=== PATIENT | male | born 1955 | race Caucasian/White ===

== ENCOUNTER → 2017-01-09 | Outpatient (CLI) | payer SELFPAY | END | disposition home or self-care (01) | LOC: LABPAT 10:26 | PROVIDERS: ATTEND Orthopaedic Surgery | DX: Z01.812 Encounter for preprocedural laboratory examination (principal) | CPT/HCPCS: 87070 ==

== ENCOUNTER 2017-01-26 10:23 | Inpatient (IN) | payer OTHER ==
[2017-01-23 09:57] VITALS: BMI 36.8
[~2017-01-26 10:23] MED LIST: ACETAMINOPHEN TAB 500 MG TAB PO ONE; DEXAMETHASONE SOD PHOSPHATE 10 MG/ML 1 ML VIAL IV ONE; HYDROmorphone 0.5 MG/0.5 ML SYRINGE IVP PRN; LIDOCAINE 1% 20 ML VIAL (10MG/ML) FOR IV START INTRADERMA PRN; MELOXICAM 7.5 MG TAB PO ONE; MIDAZOLAM 2 MG/2 ML VIAL IV PRN; ONDANSETRON 4 MG/2 ML VIAL IVP ONE; SCOPOLAMINE 1.5MG/72HR PATCH TRANSDERM ONE; TRANEXAMIC ACID 1,000 MG in SODIUM CHLORIDE 0.9% 100 ML IVPB ONE; ceFAZolin 2 GM in SODIUM CHLORIDE 0.9% 100 ML IVPB ONE
[2017-01-26] MEDS ORDERED: ROPIVACAINE 246.25 MG, EPINEPHrine 0.5 MG, KETOROLAC 30 MG, cloNIDine HCL/PF 80 MCG, WA... MISCELLANE ONE ×5 (10:46)
[2017-01-26] MEDS ORDERED: HYDROmorphone 1 MG/ML 1 ML SYRINGE IVP PRN ×3 (10:59→16:43)
[2017-01-26] MEDS ORDERED: DIAZEPAM 5 MG TAB PO PRN ×2 (10:59)
[2017-01-26] MEDS ORDERED: HYDROcodone/APAP 5-325MG 1 EACH TAB PO PRN (10:59)
[2017-01-26] MEDS ORDERED: NALOXONE 0.4 MG/ML 1 ML VIAL IV PRN (10:59)
[2017-01-26] MEDS ORDERED: MAGNESIUM HYDROXIDE 2,400 MG/10 ML CUP PO PRN (10:59)
[2017-01-26] MEDS ORDERED: HYDROmorphone 0.5 MG/0.5 ML SYRINGE IVP PRN ×2 (10:59)
[2017-01-26] MEDS ORDERED: ONDANSETRON 4 MG/2 ML VIAL IVP PRN (10:59)
[2017-01-26] MEDS: LACTATED RINGERS 1,000 ML IV SCH (11:59)
[2017-01-26 12:22] LABS: INR 1.1 (<1.2); Prothrombin Time 11.1 sec (9.0-12.0)
[2017-01-26] MEDS ORDERED: MIDAZOLAM 2 MG/2 ML VIAL ONE (12:25)
[2017-01-26] MEDS ORDERED: fentaNYL (PF) 50 MCG/ML 2 ML AMP ONE (12:25)
[2017-01-26] MEDS ORDERED: GLYCOPYRROLATE 0.2 MG/ML 2 ML VIAL ONE (12:25)
[2017-01-26] MEDS ORDERED: PHENYLEPHRINE-0.9% NACL SYG 1 MG/10 ML SYRINGE ONE (12:25)
[2017-01-26] MEDS ORDERED: TRANEXAMIC ACID 1,000 MG/10 ML VIAL ONE (12:25)
[2017-01-26] MEDS ORDERED: SODIUM CHLORIDE 0.9% 100 ML BAG ONE (12:25)
[2017-01-26] MEDS ORDERED: PROPOFOL 10 MG/ML 20 ML VIAL IV ONE (12:25)
[2017-01-26] MEDS ORDERED: diphenhydrAMINE 50 MG/ML 1 ML VIAL ONE (12:25)
[2017-01-26 12:33] LABS: Partial Thromboplastin Time 20.8 sec (22.0-30.0)
[2017-01-26] MEDS ORDERED: ceFAZolin 3,000 MG in SODIUM CHLORIDE 0.9% IRRIGATIO 3,000 ML IRRIGATION ONE (13:25)
[2017-01-26] MEDS ORDERED: LACTATED RINGERS 1,000 ML IV ONE ×2 (13:40→15:38)
--- NOTE | 2017-01-26 14:12 | P.OP ---
Date of Procedure: 01/26/17 Preoperative Diagnosis: Severe osteoarthritis right hip Postoperative Diagnosis: Severe osteoarthritis right hip Procedure(s) Performed: Right total hip arthroplasty with a direct anterior approach Implants: Haile and nephew Polarstem size 3 standard Haile [employer] Nephew R3, 3 hole acetabular shell, 52 mm [employer]ile [employer]hew reflection 6.5 mm cancellus screw, 20 mm 2 [employer]ile [employer]hew R3, XLPE 20 acetabular liner Haile [employer] Nephew Oxinium femoral head 36 m, -3 All components were press-fit. The articulation is Oxinium on polyethylene. Anesthesia: spinal Surgeon: Yuriy Pearce Hanger Off #1: Melanie Maldonado Estimated Blood Loss (ml): 550 (320 mL returned with Cell Saver) Pathology: other (Femoral head) Condition: stable Disposition: PACU Indications for Procedure: After failure of conservative treatment we discussed the surgical and nonsurgical treatment options at length. Patient wishes to proceed with a total hip arthroplasty with a direct anterior approach. Complications specific to this procedure were discussed at length, including but not limited to infection, leg length discrepancy, dislocation, and nerve injury. Patient is aware of all these complications and informed consent was obtained Operative Findings: The operative findings are consistent with severe osteoarthritis of the right hip Description of Procedure: Patient was seen and evaluated in the preoperative area, consent was reviewed, and the surgical site was marked with a skin marker. Patient was then brought to the operating room and given prophylactic antibiotics intravenously. 1 g of Tranexamic acid was also given. A spinal anesthetic was administered by the anesthesia department. The patient was then placed on the [place] table with the bony prominences well-padded. The hip area was then prepped and draped in usual sterile fashion. A universal timeout was then performed, which confirmed the patient's name, surgical site, ALLERGIES, and procedure being performed. Next the incision site was located at 1 cm distal and 1 cm lateral to the anterior superior iliac spine. The skin and subcutaneous tissues were sharply incised. Incision was carefully dissected down to the fascia overlying the tensor fascia maximo muscle. This fascia was then incised in line with the incision. Next, using blunt finger dissection, the tensor fascia maximo muscle was dissected off its investing fascia. The muscle was then carefully retracted laterally with a cobra retractor over the lateral neck of the femur. Next, the circumflex vessels were identified and cauterized using the AquaMantis device. The anterior hip capsule was then exposed. The capsule was then opened and an inverted T fashion. Cobra retractors were then placed intracapsularly. The proximal femur was then visualized. The femoral neck was then osteotomized appropriate level above the lesser trochanter. Small amount of traction was placed with the [place] table. A small wedge of bone was then removed from the remaining femoral head. Next, using a corkscrew femoral head was easily removed from the acetabulum. On gross visual inspection, the femoral head had complete loss of articular cartilage in multiple periarticular osteophytes. Attention was then turned to the acetabulum. the acetabulum was exposed and any remaining labrum was excised. Sequential reaming of the acetabulum was performed using fluoroscopic guidance. When the appropriate size was reached, a trial was then placed. The position and fit of the trial was checked with fluoroscopy. The trial was then removed. Then, using fluoroscopic guidance, the final implant was impacted at 20 of anteversion and 40 of abduction, and fully seated in the acetabulum. 2 screws were then placed in the acetabulum. Again fluoroscopy was used to check position of the screws. Next, the liner was then impacted, with a 20 elevated liner located in the anterior superior quadrant. Component locking was confirmed. Attention was then directed to the femur. With the aid of the [place] table, the femur was externally rotated to approximately 130, extended, and abducted under the opposite leg. A side hook was then placed under the proximal femur, and the side hook elevator was used to elevate the proximal femur. Retractors were then placed. A capsular release was performed, as well as a release of the conjoined tendon, which afforded excellent visualization of the proximal femur. Next, a box osteotome was used to lateralize the proximal femur. A ultrasonic hand solderer was then used to locate the femoral canal. Sequential broaching was then performed with appropriate size which afforded excellent fixation in the proximal femur. A trial was then placed with appropriate head and neck, and the hip was gently reduced with the aid of the [place] table. Fluoroscopy was then used to check position of the components, as well as to ensure equal leg lengths. The hip was then gently dislocated and the trials were then removed. Final implants were then impacted and the hip was again reduced. Final fluoroscopic x-rays confirmed that the components were in anatomic position, as well as equal leg lengths. The hip was also taken through range of motion, and found to be stable. The hip was then copiously irrigated with antibiotic solution with pulsatile lavage. The hip was then irrigated with Irrisept solution. The soft tissues were then injected with a ropivacaine solution, which consisted of 246.25 mg of ropivacaine, 0.5 mg of epinephrine, 30 mg of Toradol, 80 g of clonidine, and 48.45 mL of sterile water, for a total of 100 mL of fluid injected. A second dose of 1 g of Tranexamic acid was also given. the fascia was then closed with 2-0 strata fix suture. The subcutaneous tissue was closed with 3-0 Vicryl. The subcuticular tissue was closed with 3-0 strata fix suture. The skin was then closed with Dermabond glue and a silver dressing. The patient was then transferred to the recovery room in stable condition. The assistant shift supervisor MANE Shabazz was required due to the complexity of surgery, and the need for skilled expanded duty dental assistant for positioning, draping, exposure, retraction, and closure of the wound.
--- NOTE | 2017-01-26 14:13 | FL ---
Fluoroscopy HISTORY: Hip replacement 36 seconds fluoroscopy time supplied to the referring clinician. 2 intraoperative C-arm images document the procedure. See dictated report from orthopedic surgery. ALEXISD
--- NOTE | 2017-01-26 14:19 | XR ---
Limited right hip HISTORY: Hip replacement 2 intraoperative C-arm images document procedure
--- NOTE | 2017-01-26 15:06 | XR ---
Limited right hip HISTORY: Status post right hip arthroplasty Single frontal view of the right hip No comparisons Patient is status post right hip arthroplasty. There is anatomic alignment. Lucency present in the so ft tissues compatible with postop state. Possible soft tissue bone fragment at the level of the femor al neck prosthesis may be due to postop change. IMPRESSION: Orthopedic follow-up.
[2017-01-26] MEDS ORDERED: MELATONIN PO PRN (15:42)
[2017-01-26] MEDS ORDERED: ASPIRIN 325 MG TAB PO PRN (15:42)
--- NOTE | 2017-01-26 16:18 | P.CONS ---
History of Present Illness - Reason for Consult Hypertension, perioperative complications management. - History of Present Illness 61-year-old came in for right total hip arthroplasty direct anterior approach, patient's x-ray underwent surgery denied any pain at this point of time. Patient denied any dysuria denied any nausea vomiting patient is on antibiotics in the form of Bactrim as an outpatient for urinary tract infection although it appears to be a symptomatically bacteriuria patient almost completed antibiotics except for 2 more pills. Which will risk and urine do not believe patient will require antibiotics at this time. Patient denied any dysuria patient denied nausea vomiting patient had any abdominal pain lightheadedness cough runny nose. Patient did not pass gas yet. Review of Systems REVIEW OF SYSTEMS: CONSTITUTIONAL: No fever, no malaise, no fatigue. HEENT: No recent visual problems or hearing problems. Denied any sore throat. CARDIOVASCULAR: No chest pain, orthopnea, PND, no palpitations, no syncope. PULMONARY: No shortness of breath, no cough, no hemoptysis. GASTROINTESTINAL: No diarrhea, no nausea, no vomiting, no abdominal pain. Normoactive bowel sounds. NEUROLOGICAL: No headaches, no weakness, no numbness. HEMATOLOGICAL: Denies any bleeding or petechiae. GENITOURINARY: Denies any burning micturition, frequency, or urgency. MUSCULOSKELETAL/RHEUMATOLOGICAL: Denies any joint pain, swelling, or any muscle pain. ENDOCRINE: Denies any polyuria or polydipsia. The rest of the 14-point review of systems is negative. Past Medical History Past Medical History: Hypertension, Osteoarthritis (OA), Prostate Disorder Additional Past Medical History / Comment(s): ENLARGED PROSTATE. History of Any Multi-Drug Resistant Organisms: None Reported Past Surgical History: Orthopedic Surgery Additional Past Surgical History / Comment(s): VASCECTOMY,COLONOSCOPY, BILATERAL KNEE (TENDON REPAIR) Past Anesthesia/Blood Transfusion Reactions: No Reported Reaction, Family History of Problems w/ Anesthesia, Motion Sickness Additional Past Anesthesia/Blood Transfusion Reaction / Comm: FATHER HAS DIFFICULTY WAKING Past Psychological History: No Psychological Hx Reported Smoking Status: Never smoker Past Alcohol Use History: None Reported Past Drug Use History: None Reported - Past Family History father Family Medical History: Diabetes Mellitus Medications and Allergies Home Medications Medication Instructions Recorded Confirmed Type Aspirin 650 mg PO DAILY PRN 01/23/17 01/26/17 History Ibuprofen [Motrin] 1,000 mg PO DAILY PRN 01/23/17 01/26/17 History Melatonin (Unknown Dose) 2 tab PO HS PRN 01/23/17 01/26/17 History Lisinopril-Hctz 20-25 mg 1 tab PO DAILY 01/26/17 01/26/17 History [Zestoretic 20-25] Sulfamethox-Tmp 800-160Mg [Bactrim 1 tab PO Q12HR 01/26/17 01/26/17 History DS 800-160 mg] Terazosin HCl 10 mg PO DAILY 01/26/17 01/26/17 History Allergies Allergy/AdvReac Type Severity Reaction Status Date / Time No Known Allergies Allergy Verified 01/26/17 11:25 Physical Exam Vitals: Vital Signs Temp Pulse Resp BP Pulse Ox 01/26/17 15:30 90 18 119/69 97 01/26/17 15:15 85 18 113/66 92 L 01/26/17 15:00 84 18 112/60 92 L 01/26/17 14:45 90 18 116/69 95 01/26/17 12:02 97.9 F 86 16 133/76 93 L Intake and Output 01/26/17 01/26/17 01/26/17 06:59 14:59 22:59 Intake Total 2101 Output Total 550 Balance 1551 Intake: IV 2101 Output: Estimated Blood Loss 550 PHYSICAL EXAMINATION: GENERAL: The patient is alert and oriented x3, not in any acute distress. Well developed, well nourished. HEENT: Pupils are round and equally reacting to light. EOMI. No scleral icterus. No conjunctival pallor. Normocephalic, atraumatic. No pharyngeal erythema. No thyromegaly. CARDIOVASCULAR: S1 and S2 present. No murmurs, rubs, or gallops. PULMONARY: Chest is clear to auscultation, no wheezing or crackles. ABDOMEN: Soft, nontender, nondistended, normoactive bowel sounds. No palpable organomegaly. MUSCULOSKELETAL: Deferred to arthritic surgery EXTREMITIES: Deferred to orthopedic surgery no pedal edema no cyanosis no clubbing NEUROLOGICAL: Gross neurological examination did not reveal any focal deficits. SKIN: No rashes. Results Labs: Abnormal Lab Results - Last 24 Hours (Table) 01/26/17 Range/Units 11:40 APTT 20.8 L (22.0-30.0) sec Assessment and Plan Plan: #1 postoperative day 0 right hip arthroplasty: Pain management, DVT prophylaxis as per primary service. #2 hypertension: To prevent perioperative hypotension will hold off on antidepressant medications patient is an not on beta tc. #3 benign prostatic hypertrophy continue tamsulosin #4 asymptomatic bacteriuria will not require any antibiotics Bactrim will be discontinued. 5 severe osteoarthritis for which patient underwent surgery now.
[2017-01-26] MEDS: SODIUM CHLORIDE 0.9% 1,000 ML IV SCH (16:53)
[2017-01-26] MEDS: HYDROcodone/APAP 5-325MG 1 EACH TAB PO PRN (18:16)
[2017-01-26] MEDS: ASPIRIN 325 MG TAB PO SCH (20:15)
[2017-01-26] MEDS: ceFAZolin IN SWFI 2 GM/20 ML SYRINGE IVP SCH (20:15)
[2017-01-26] MEDS ORDERED: SENNOSIDES-DOCUSATE SODIUM 1 EACH TAB PO SCH (21:00)
[2017-01-27] MEDS: hydrOXYzine PAMOATE 25 MG CAP PO PRN ×2 (00:52→06:01)
[2017-01-27] MEDS: HYDROcodone/APAP 5-325MG 1 EACH TAB PO PRN ×3 (00:52→12:28)
[2017-01-27] MEDS: SODIUM CHLORIDE 0.9% 1,000 ML IV SCH (04:26)
[2017-01-27] MEDS: ceFAZolin IN SWFI 2 GM/20 ML SYRINGE IVP SCH (05:03)
[2017-01-27 07:03] LABS: Basophils % (A) 0 %; CH 27.2; CHCM 32.5; Eosinophils % (A) 0 %; HCT 34.4 % (39.0-53.0); HDW 2.74; HGB 11.1 gm/dL (13.0-17.5); Luc # (Auto) 0.13; Luc % (Auto) 1; Lymphocytes # (A) 0.8 k/uL (1.0-4.8); Lymphocytes % (A) 8 %; MCH 27.1 pg (25.0-35.0); MCHC 32.2 g/dL (31.0-37.0); Mean Platelet Volume 9.2; Monocytes # (A) 0.7 k/uL (0-1.0); Monocytes % (A) 7 %; Neutrophils # (A) 8.4 k/uL (1.3-7.7); Neutrophils % (A) 84 %; RDW 15.1 % (11.5-15.5); WBC (Perox) 10.27
[2017-01-27] MEDS: ASPIRIN 325 MG TAB PO SCH (07:23)
[2017-01-27] MEDS ORDERED: DOXAZOSIN 4 MG TAB PO SCH (09:00)
[2017-01-27] MEDS ORDERED: MELOXICAM 7.5 MG TAB PO SCH (09:00)
--- NOTE | 2017-01-27 09:10 | P.DS ---
Providers Date of admission: 01/26/17 11:08 Expected date of discharge: 01/27/17 Attending physician: Yuriy Pearce Consults: 01/26/17 10:59 Consult Physician Routine Consulting Provider: Sunita Hawk Consult Reason/Comments: medical management Do you want consulting provider notified?: Yes Primary care physician: Kelsea Shearer - Discharge Diagnosis(es) (1) Primary osteoarthritis of right hip Current Visit: Yes Status: Acute (2) S/P total hip arthroplasty Current Visit: Yes Status: Acute Hospital Course: This is a 61-year-old male with known history of degenerative arthritis of the right hip. The patient presents for evaluation. After discussion and consideration patient elects to proceed with total hip arthroplasty. The patient is seen preoperatively by Dr. Pearce and cleared for surgery. Patient is admitted to [facility] on 01/26/2017 for total hip arthroplasty. The procedures performed without complication or sequelae. The patient is doing well postoperatively. Labs and vital signs are stable on day of discharge. On day of discharge patient's hip incision is healing well. There is minimal erythema. There is no drainage noted at this time. There is minimal soft tissue swelling to the hip and thigh. Patient has full foot and ankle motion without difficulty or pain. Neurovascular status to the right lower extremity is intact. Patient is discharged home in good condition.Please see med rec for accurate list of home medications. Plan - Discharge Summary Discharge Rx Participant: Yes New Discharge Prescriptions: New Aspirin 325 mg PO BID #60 tab HYDROcodone/APAP 5-325MG [[place] 5-325] 1 - 2 tab PO Q4-6H PRN #90 tab PRN Reason: Pain Sennosides-Docusate Sodium [Senokot-S] 1 tab PO BID #60 tablet No Action Ibuprofen [Motrin] 1,000 mg PO DAILY PRN PRN Reason: Pain Melatonin (Unknown Dose) 2 tab PO HS PRN PRN Reason: Insomnia Aspirin 650 mg PO DAILY PRN PRN Reason: Pain Sulfamethox-Tmp 800-160Mg [Bactrim DS 800-160 mg] 1 tab PO Q12HR Lisinopril-Hctz 20-25 mg [Zestoretic 20-25] 1 tab PO DAILY Terazosin HCl 10 mg PO DAILY Discharge Medication List Aspirin 650 mg PO DAILY PRN 01/23/17 [History] Ibuprofen [Motrin] 1,000 mg PO DAILY PRN 01/23/17 [History] Melatonin (Unknown Dose) 2 tab PO HS PRN 01/23/17 [History] Lisinopril-Hctz 20-25 mg [Zestoretic 20-25] 1 tab PO DAILY 01/26/17 [History] Sulfamethox-Tmp 800-160Mg [Bactrim DS 800-160 mg] 1 tab PO Q12HR 01/26/17 [ History] Terazosin HCl 10 mg PO DAILY 01/26/17 [History] Aspirin 325 mg PO BID #60 tab 01/27/17 [Rx] HYDROcodone/APAP 5-325MG [[place] 5-325] 1 - 2 tab PO Q4-6H PRN #90 tab 01/27/17 [ Rx] Sennosides-Docusate Sodium [Senokot-S] 1 tab PO BID #60 tablet 01/27/17 [Rx] Follow up Appointment(s)/Referral(s): Yuriy Pearce DO [Doctor of Osteopathic Medicine] - 2 Weeks Ambulatory/Diagnostic Orders: Ambulatory Physical Therapy Order [THER.AMB] Location: Determined By Patient Activity/Diet/Wound Care/Special Instructions: Weightbearing as tolerated with walker May shower after 2 days if no drainage from the incision Follow-up with [facility] in 2 weeks with any questions or concerns, please call with any questions or concerns, Discharge Disposition: HOME WITH HOME HEALTH SERVICES
[2017-01-27 10:48] VITALS: BP 109/69; PULSE 68; RESP 15; TEMP 98.2
[2017-01-27] MEDS: LACTATED RINGERS 1,000 ML IV SCH (12:39)
--- NOTE | 2017-01-28 22:42 | P.PN ---
Subjective Progress Note Date: 01/27/17 Principal diagnosis: Hip arthroplasty 61-year-old came in for right total hip arthroplasty direct anterior approach, patient's x-ray underwent surgery denied any pain at this point of time. Patient denied any dysuria denied any nausea vomiting patient is on antibiotics in the form of Bactrim as an outpatient for urinary tract infection although it appears to be a symptomatically bacteriuria patient almost completed antibiotics except for 2 more pills. Which will risk and urine do not believe patient will require antibiotics at this time. Patient denied any dysuria patient denied nausea vomiting patient had any abdominal pain lightheadedness cough runny nose. 01/27/2017 Patient denied any worsening hip pain. Able to ambulate. No fever no chills. No acute overnight issues. Patient is cleared for discharge. Objective - Vital Signs Vital signs: Vital Signs Temp 98.2 F 01/27/17 10:46 Pulse 68 01/27/17 10:46 Resp 15 01/27/17 10:46 BP 109/69 01/27/17 10:46 Pulse Ox 95 01/27/17 10:46 Intake & Output 01/27/17 01/27/17 01/28/17 06:59 18:59 06:59 Output Total 375 Balance -375 Output: Urine 375 Other: Voiding Method Toilet Toilet Urinal - Exam PHYSICAL EXAMINATION: Patient is lying in the bed comfortably, no acute distress, awake alert and oriented.. HEENT: Normocephalic. Neck is supple. Pupils reactive. Nostrils clear. Oral cavity is moist. Ears reveal no drainage. Neck reveals no JVD, carotid bruits, or thyromegaly. CHEST EXAMINATION: Trachea is central. Symmetrical expansion. Lung reyes clear to auscultation and percussion. CARDIAC: Normal S1, S2 with no gallops. No murmurs ABDOMEN: Soft. Bowel sounds normal. No organomegaly. No abdominal bruits. Extremities: reveal no edema. No clubbing or cyanosis Neurologically awake, alert, oriented x3 with well-coordinated movements. No focal deficits noted Skin: No rash or skin lesions. Psychiatric: Operative. Nonsuicidal Musculoskeletal: No joint swelling or deformity. Normal range of motion. - Labs CBC & Chem 7: 01/27/17 06:46 Labs: Abnormal Lab Results - Last 24 Hours (Table) 01/27/17 Range/Units 06:46 RBC 4.10 L (4.30-5.90) m/uL Hgb 11.1 L (13.0-17.5) gm/dL Hct 34.4 L (39.0-53.0) % Neutrophils # 8.4 H (1.3-7.7) k/uL Lymphocytes # 0.8 L (1.0-4.8) k/uL Assessment and Plan Assessment: #1 postoperative day 1 right hip arthroplasty: Pain management, DVT prophylaxis as per primary service. #2 hypertension: Patient can be started back on his home medications. #3 benign prostatic hypertrophy continue tamsulosin #4 asymptomatic bacteriuria will not require any antibiotics Bactrim was discontinued. 5 severe osteoarthritis for which patient underwent surgery now.
== END 2017-01-27 15:15 | disposition home health service (06) | DRG 470 ==
LOC: 2ORMAIN 11:08 → 3SUR 14:39
PROVIDERS: ADMIT Orthopaedic Surgery; ATTEND Orthopaedic Surgery
PROC: 0SR902A Replacement of Right Hip Joint with Metal on Polyethylene Synthetic Substitute, Uncemented, Open Approach (ICD-10-PCS; principal; 2017-01-26 12:30)
DX: M16.11 Unilateral primary osteoarthritis, right hip (principal); E66.01 Morbid (severe) obesity due to excess calories; I10 Essential (primary) hypertension; N40.0 Benign prostatic hyperplasia without lower urinary tract symptoms; R82.71 Bacteriuria; Z68.36 Body mass index [BMI] 36.0-36.9, adult; Z79.82 Long term (current) use of aspirin; Z79.899 Other long term (current) drug therapy
CPT/HCPCS: 73501; 85025; 85610; 85730; 86850; 86900; 86901; 88300